=== PATIENT | female | born 2000 | race American Indian/Alaskan Native ===

== ENCOUNTER 2018-10-28 21:13 | Emergency (ER) | payer SELFPAY ==
[2018-10-28 22:22] VITALS: BP 165/77
--- NOTE | 2018-10-28 22:23 | Event Note ---
ED Screening Note Date of service: 10/28/18 Time: 22:19 ED Screening Note: This is a 18 y.o. F. that presents to the ER with sore throat and difficulty breathing for 1 week. Tried taking Nyquil with no improvement of symptoms. This initial assessment/diagnostic orders/clinical plan/treatment(s) is/are subject to change based on patients health status, clinical progression and re- assessment by fellow clinical providers in the ED. Further treatment and workup at subsequent clinical providers discretion. Patient/guardian urged not to elope from the ED as their condition may be serious if not clinically assessed and managed. Initial orders include:
--- NOTE | 2018-10-29 04:10 | XRay Report ---
CHEST 2 VIEWS INDICATION / CLINICAL INFORMATION: cough. COMPARISON: None available. FINDINGS: SUPPORT DEVICES: None. HEART / MEDIASTINUM: No significant abnormality. LUNGS / PLEURA: No significant pulmonary or pleural abnormality. .No pneumothorax. ADDITIONAL FINDINGS: No significant additional findings. IMPRESSION: 1. No acute findings. Signer Name: Kevin Duarte MD Signed: 10/29/2018 4:05 AM Workstation Name: [id number]
--- NOTE | 2018-10-29 05:19 | Emergency Department Report ---
- General Chief Complaint: Dyspnea/Respdistress Stated Complaint: YASMEEN Time Seen by Provider: 10/28/18 22:19 Source: patient Mode of arrival: Ambulatory Limitations: No Limitations - History of Present Illness Complaint: cough Quality: dull Consistency: constant Improves With: nothing Worsens With: nothing Treatments Prior to Arrival: none - Related Data Previous Rx's Medication Instructions Recorded Last Taken Type guaiFENesin/CODEINE [Robitussin AC] 5 ml PO Q6H PRN #120 ml 10/29/18 Unknown Rx Allergies Allergy/AdvReac Type Severity Reaction Status Date / Time No Known Allergies Allergy Unverified 10/28/18 21:19 ED Review of Systems ROS: Stated complaint: YASMEEN Other details as noted in HPI ED Past Medical Hx - Past Medical History Previous Medical History?: No - Surgical History Past Surgical History?: No - Social History Smoking Status: Never Smoker Substance Use Type: None - Medications Home Medications: Home Medications Medication Instructions Recorded Confirmed Last Taken Type guaiFENesin/CODEINE [Robitussin AC] 5 ml PO Q6H PRN #120 ml 10/29/18 Unknown Rx ED Physical Exam - General Limitations: No Limitations ED Course Vital Signs 10/28/18 22:18 Temperature 98.8 F Pulse Rate 96 H Respiratory 18 Rate Blood Pressure 165/77 O2 Sat by Pulse 99 Oximetry Critical care attestation.: If time is entered above; I have spent that time in minutes in the direct care of this critically ill patient, excluding procedure time. ED Disposition Disposition: [id number] TO HOME OR SELFCARE Condition: Stable Instructions: Cold Symptoms (ED), Acute Cough (ED) Prescriptions: guaiFENesin/CODEINE [Robitussin AC] 5 ml PO Q6H PRN #120 ml PRN Reason: Cough Referrals: ZENON VEGA MD [Primary Care Provider] - 3-5 Days
== END 2018-10-29 05:53 | disposition home or self-care (01) ==
LOC: ED 21:13
DX: R05 Cough (principal)
CPT/HCPCS: 71046